=== PATIENT | male | born 1955 | race Caucasian/White ===

== ENCOUNTER 2016-07-23 08:54 | Emergency (ER) | payer BC ==
[~2016-07-23] VITALS: Ht 177.8 cm; Wt 100.0 kg
--- NOTE | 2016-07-23 09:53 | NUR ---
UP TO TOILET TO ATTEMPT TO PROVIDE URINE SPECIMEN. NEEDS HELP FROM SPOUSE TO UNZIP PANTS. PT UNABLE TO HOLD CUP WHILE URINATING - CUP HELD BY WHILE PT URINATED. PT ABLE TO ZIP PANTS BUT INITIALLY LOOKING AT SIDE OF PANTS FOR ZIPPER.
[2016-07-23 10:09] LABS: BASOPHILS % (AUTO) 0 % (0-2); EOSINOPHILS # (AUTO) 0.2 10^3uL; EOSINOPHILS % (AUTO) 2 % (0-4); MEAN CORPUSCULAR VOLUME 87 FL (80-100); MEAN PLATELET VOLUME 8.8 FL (6.0-9.5); MONOCYTES # (AUTO) 0.6 X10^3; MONOCYTES % (AUTO) 8 % (3-11); NEUTROPHILS # (AUTO) 4.5 X10^3; NEUTROPHILS % (AUTO) 62 % (51-67); PLATELET COUNT 239 10^3uL (150-450); WHITE BLOOD COUNT 7.24 10^3uL (4.0-11.0)
[2016-07-23 10:10] LABS: BILIRUBIN,URINE Negative (Negative); CLARITY,URINE Clear; GLUCOSE, URINE (UA) Negative (Negative); LEUKOCYTE ESTERASE ,URINE Trace (Negative); PH,URINE 6.5 (5.0 - 8.0)
[2016-07-23 10:12] LABS: MEAN CORPUSCULAR HEMOGLOBIN 31.8 PG (26.0-34.0); MEAN CORPUSCULAR HGB CONC 36.8 g/dL (31.0-37.0)
[2016-07-23 10:17] LABS: COLOR,URINE Dark Yellow
[2016-07-23 10:19] LABS: URINE CENTRIFUGED VOLUME 12 mL
[2016-07-23 10:20] LABS: ALBUMIN 4.2 g/dL (3.4-5.0); ANION GAP 12.2 MEQ/L (3-15); TOTAL PROTEIN 7.2 g/dL (6.4-8.5)
--- NOTE | 2016-07-23 10:40 | NUR ---
Patient's states he fell this morning when getting out of the bathtub. Reported to Dr. Landers.
[2016-07-23] MEDS ORDERED: HYDROmorphone 1 MG/ML (DILAUDID) SYRINGE IV ONE (11:20)
--- NOTE | 2016-07-23 12:45 | NUR ---
DR. TORIBIO HAS BEEN TO VISIT WITH PATIENT AGAIN. DR. TORIBIO RE-ASSESSES PTS HAND/ARM STRENGTH, BALANCE, COORIDINATION, AND UNDERSTANDING OF DISMISSAL INSTRUCTIONS PRIOR TO FINAL APPROVAL OF DISMISSAL FROM ED. HAS VERBALIZED UNDERSTANDING OF DISMISSAL INSTRUCTIONS, TOO, AND DENIES QUESTIONS.
[2016-07-23 13:05] VITALS: BP 131/90
== END 2016-07-23 12:48 | disposition home or self-care (01) ==
LOC: ED 08:55
DX: R27.8 Other lack of coordination (principal); F48.8 Other specified nonpsychotic mental disorders; R80.9 Proteinuria, unspecified; R31.9 Hematuria, unspecified
CPT/HCPCS: 36415; 70450; 72125; 76376; 80053; 81003; 81015; 85025; 87088; 93005; 93010; 99284